=== PATIENT | male | born 1940 | race Caucasian/White ===

== ENCOUNTER 2020-02-12 13:11 | Emergency (ER) | payer OTHER ==
[~2020-02-12] VITALS: Ht 177.8 cm; Wt 99.8 kg
[~2020-02-12 13:11] MED LIST: ASPIRIN325 PO; ATORVASTATIN CA40 MG PO; AVODART0.5 MG PO; CARAFATE 11 GM/10 M1 PO; CENTRUM SILVER1 EAC2 PO; CYMBALTA60 MG PO; FLOMAX0.4 MG PO; HUMALOG100 UNIT/1 SUBQ; HYDROCHLOROTHIA25 M2 PO; HYDROCODONE-AP1 EAC6 PO; LANTUS SUBQ; LISINOPRIL20 MG PO; NORVASC10 MG PO; PLAVIX 75 MG TA75 M1 PO; POTASSIUM20 PO; PROTONIX40 M1 PO; PROVIGIL 200 M200 M1 PO; TENORMIN50 MG PO
[2020-02-12 13:54] LABS: BASOPHILS 0.6 % (0.0-2.0); HEMATOCRIT 46.6 % (42.0-52.0); HEMOGLOBIN 15.7 gm/dL (14.0-18.0); LYMPHOCYTES 17.2 % (24.0-44.0); MCH 32.5 pg (26.0-34.0); MCHC 33.7 g/dL (28.0-37.0); MCV 96.4 fL (80.0-100.0); MONOCYTES 8.2 % (1.0-8.0); PLATELET COUNT 164 thou/uL (150-400); RBC 4.83 mil/uL (4.50-6.00); RDW 13.5 % (10.5-14.5); WBC 11.3 thou/uL (4.0-11.0)
[2020-02-12 14:04] LABS: ANION GAP 9 mmol/L (7-16); BUN 27 mg/dL (7-18); CALCIUM 9.2 mg/dL (8.5-10.1); CHLORIDE 99 mmol/L (98-107); CO2 27 mmol/L (21-32); CREATININE 1.7 mg/dL (0.7-1.3); GLUCOSE 165 mg/dL (74-106); POTASSIUM 4.3 mmol/L (3.5-5.1); SODIUM 135 mmol/L (136-145)
[2020-02-12 14:12] LABS: ALBUMIN 3.9 g/dL (3.4-5.0); SGOT 25 U/L (15-37); SGPT 15 U/L (30-65); TOTAL BILIRUBIN 0.8 mg/dL (0.2-1.0); TOTAL PROTEIN 7.2 g/dL (6.4-8.2); TROPONIN-I <0.06 ng/mL (<0.06)
--- NOTE | 2020-02-12 15:38 | EKG ---
[facility] [place] [address] ELECTROCARDIOGRAM REPORT Name: SERENITY SPENCE Room #: REG [facility]#: [id number] Admission: 02/12/20 Attend Phys: Discharge: Date of : 42 Report #: [id number] THIS REPORT FOR: cc: Yair Marie MD, Thomas P. MD Santiago, Patrick MD [facility] ~ THIS REPORT FOR: //name// [facility] ED Test Date: 2020-02-12 Test Time: 13:55:14 Pat Name: SERENITY SPENCE Department: Room: Gender: M [employer]: : 1940 Requested By: Go Hobbs Order Number: [id number] MD: Vineet Pedraza Measurements Intervals [place] Rate: 69 P: VT: QRS: 58 QRSD: 164 T: -67 QT: 439 QTc: 471 Interpretive Statements Atrial fibrillation Right bundle branch block Inferior infarct, age indeterminate ST depr, consider ischemia, anterolateral lds Baseline wander in lead(s) V1 Compared to ECG 01/13/2016 22:27:55 No significant changes Electronically Signed On 02-12-2020 15:38:29 CDT by Vineet Pedraza [email or web address] <ELECTRONICALLY SIGNED> By: Vineet Pedraza MD, FACC 02/12/20 1538 [id number] Vineet Pedraza MD, FAC /EPI
[2020-02-12 16:01] VITALS: BP 122/64
== END 2020-02-12 16:02 | disposition home or self-care (01) ==
LOC: ER 13:11
PROVIDERS: Physician Assistant
DX: S01.01XA Laceration without foreign body of scalp, initial encounter (principal); S01.111A Laceration without foreign body of right eyelid and periocular area, initial encounter; R42 Dizziness and giddiness; I10 Essential (primary) hypertension; E11.9 Type 2 diabetes mellitus without complications; Z79.4 Long term (current) use of insulin; Z79.01 Long term (current) use of anticoagulants; Z79.899 Other long term (current) drug therapy; Z87.891 Personal history of nicotine dependence; W18.39XA Other fall on same level, initial encounter; Y93.89 Activity, other specified; Y92.89 Other specified places as the place of occurrence of the external cause; Y99.8 Other external cause status